=== PATIENT | male | born 1985 | race African-American/Black ===

== ENCOUNTER 2018-10-14 19:49 | Emergency (ER) | payer SELFPAY ==
[~2018-10-14] VITALS: Ht 182.9 cm; Wt 104.3 kg
[2018-10-14 20:15] VITALS: BP 153/72
--- NOTE | 2018-10-14 20:15 | NUR ---
ED Nurse Note: Patient walked in to ER c/o high BP. Patient states it was high yesterday (167/100) and today (160/90) when he checked it at work. Patient BP in triage is 153/72. Patient's BP at bedside 146/93. AAO x4, other VSS, skin is dry, intact, warm to touch.
[2018-10-14 21:09] LABS: APPEARANCE,URINE CLEAR; BILIRUBIN, URINE NEGATIVE (NEGATIVE); COLOR,URINE PALE YELLOW; GLUCOSE, URINE (UA) NEGATIVE (NEGATIVE); KETONES,URINE NEGATIVE (NEGATIVE); LEUKOCYTE ESTERASE ,URINE NEGATIVE (NEGATIVE); NITRITE,URINE NEGATIVE (NEGATIVE); PH,URINE 6 (4.5-8.0); PROTEIN,URINE NEGATIVE (NEGATIVE); UROBILINOGEN,URINE NORMAL MG/DL (0.0-1.0)
--- NOTE | 2018-10-14 21:22 | Emergency Room Report ---
History of Present Illness General Chief Complaint: Hypertension Source: Patient Present Illness HPI This patient is concerned about high blood pressure. He states he wasn't feeling quite right so he uses neighbor's blood pressure cuff and noted that his systolic blood pressures were in the 160s and 170s. He denies chest pain or shortness of breath. He denies recent illness. He does have a family history of high blood pressure. He states that he does not have a primary care physician and does not get regularly evaluated. He denies tobacco use. He does drink alcohol. He uses marijuana. He denies any other drugs. He has no other complaints. Allergies: Coded Allergies: No Known Allergies (Unverified , 10/14/18) Patient History Past Medical History: none Social History: Reports: alcohol use, drug use - THC; Denies: smoking Reviewed Nursing Documentation: PMH: Agreed; PSxH: Agreed Nursing Documentation-PMH Past Medical History: No Stated History Review of Systems All Other Systems: negative except mentioned in HPI Physical Exam Vital Signs Date Time Temp Pulse Resp B/P (MAP) Pulse Ox O2 Delivery O2 Flow Rate FiO2 10/14/18 20:00 98.6 81 16 153/72 98 Room Air Sp02 EP Interpretation: reviewed, normal General Appearance: no apparent distress, alert, GCS 15, non-toxic Head: normocephalic, atraumatic Eyes: bilateral eye normal inspection, bilateral eye PERRL ENT: hearing grossly normal, normal pharynx, no angioedema, normal voice Neck: full range of motion, supple/symm/no masses Respiratory: chest non-tender, lungs clear, normal breath sounds, speaking full sentences Cardiovascular #1: regular rate, rhythm, no edema Gastrointestinal: normal bowel sounds, non tender, soft, non-distended, no guarding, no rebound Rectal: deferred Musculoskeletal: back normal, gait/station normal, normal range of motion, non- tender, calf tenderness Neurologic: alert, oriented x3, responsive, motor strength/tone normal, sensory intact, speech normal Psychiatric: judgement/insight normal, memory normal, mood/affect normal, no suicidal/homicidal ideation Skin: normal color, no rash, warm/dry, well hydrated Medical Decision Making Diagnostic Impression: Primary Impression: Hypertension ER Course This patient has asymptomatic hypertension. Here in the emergency department the patient's blood pressure was only marginally elevated. Most recent blood pressure was 139/84. Overall, the patient is asymptomatic and has a normal EKG and chest x-ray. I have low suspicion for malignant hypertension. The patient was instructed that he would need to obtain a primary care physician and have his blood pressure monitored. He was educated on diet modification and exercise. At this time, I did not identify an emergency medical condition. The patient is given close return precautions and follow-up instructions. Laboratory Tests Test 10/14/18 20:51 Urine Color Pale yellow Urine Appearance Clear Urine pH 6 (4.5-8.0) Urine Specific Lucas 1.015 (1.005-1.035) Urine Protein Negative (NEGATIVE) Urine Glucose (UA) Negative (NEGATIVE) Urine Ketones Negative (NEGATIVE) Urine Blood 1+ (NEGATIVE) H Urine Nitrite Negative (NEGATIVE) Urine Bilirubin Negative (NEGATIVE) Urine Urobilinogen Normal MG/DL (0.0-1.0) Urine Leukocyte Esterase Negative (NEGATIVE) Urine RBC 0-2 /HPF (0 - 0) H Urine WBC 0-2 /HPF (0 - 0) Urine Squamous Epithelial Cells Occasional /LPF Urine Bacteria None /HPF (NONE) Urine Opiates Screen Negative (NEGATIVE) Urine Barbiturates Screen Negative (NEGATIVE) Phencyclidine (PCP) Screen Negative (NEGATIVE) Urine Amphetamines Screen Negative (NEGATIVE) Urine Benzodiazepines Screen Negative (NEGATIVE) Urine Cocaine Screen Negative (NEGATIVE) Urine Marijuana (THC) Screen Positive (NEGATIVE) H EKG Diagnostic Results Rate: normal Rhythm: NSR ST Segments: no acute changes Rhythm Strip Diag. Results EP Interpretation: yes Rate: 50's Rhythm: NSR, no PVC's, no ectopy Chest X-Ray Diagnostic Results Chest X-Ray Diagnostic Results : Chest X-Ray Ordered: Yes # of Views/Limited/Complete: 1 View Indication: Other EP Interpretation: Yes Interpretation: no consolidation, no effusion, no pneumothorax, no acute cardiopulmonary disease Impression: No acute disease Electronically Signed by: Francisca Morales DO Last Vital Signs Date Time Temp Pulse Resp B/P (MAP) Pulse Ox O2 Delivery O2 Flow Rate FiO2 10/14/18 20:15 81 16 Room Air 10/14/18 20:15 98.6 153/72 98 Status: improved Disposition: HOME, SELF-CARE Condition: Improved Scripts No Active Prescriptions or Reported Meds Francisca Morales DO Oct 14, 2018 21:22
[2018-10-14 21:56] VITALS: BP 153/72
--- NOTE | 2018-10-14 21:57 | NUR ---
ED Nurse Note: Pt cleared by health care Provider for discharge. DC instructions/prescription was given and explained to pt and verbalized understanding of teachings. All medical deviecs such as ID band removed. Pt is AAO x4, ambulatory and left with all personal belongings.
--- NOTE | 2018-10-15 14:48 | Diagnostic Imaging Report ---
Indication: Chest pain, hypertension Technique: One view of the chest Comparison: none Findings: Lungs and pleural spaces are clear. Heart size is upper limits normal Impression: No acute process
--- NOTE | 2018-10-17 15:27 | Cardiology Report ---
APPROVED REPORT EKG Measurement Heart [id number] Sinus bradycardia Possible Left atrial enlargement Nonspecific ST abnormality Abnormal ECG
== END 2018-10-14 21:58 | disposition home or self-care (01) ==
LOC: EMR 21:41
DX: I10 Essential (primary) hypertension (principal); Z82.49 Family history of ischemic heart disease and other diseases of the circulatory system; F12.90 Cannabis use, unspecified, uncomplicated
CPT/HCPCS: 71045; 80307; 81003; 93005; 99283